=== PATIENT | male | born 1970 | race Caucasian/White ===

== ENCOUNTER → 2016-05-31 | Outpatient (CLI) | payer OTHER ==
--- NOTE | ~2016-05-31 | ESTC ---
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 Risks, complications and alternative treatments were reviewed. Written consent was obtained. Medications Reviewed with Patient prior to Procedure. Procedure Admit Source:Other. Procedure Type: Nuclear Stress Test:Exercise, Cardiolite Stress Test Procedure Start time: 05/31/2016 08:10 Indications: Dyspnea with exertion and Dizziness. Risk Factors The patient risk factors include:former tobacco use, hypercholesterolemia, family history of premature CAD appeared at age 40 and dyslipidemia. Conclusions Summary Cardiolite SPECT images demonstrate homogenous uptake of radioactive tracer. No evidence of inducible reversible defect and no evidence of underlying fixed defect. Normal TID ratio Gated images demonstrate normal left ventricular systolic function without inducible wall motion abnormalities. LVEF is 59% Stress Protocols Resting ECG RSR without ST or T wave changes. Resting HR:72 bpm Resting BP:147/80 mmHg Pre-stress physical exam: Patient assessed by Cuate Sharp APRN prior to testing. Hx of chest pain, palpitations and shortness of breath. Stress Protocol:Exercise Peak HR:173 bpm HR response: Appropriate Peak BP:184/82 mmHg BP response: Appropriate Predicted HR: 176 bpm HR/BP product:48567 % of predicted HR: 98 Max exercise: 12.9 METS Test duration:10:47 min Reason for termination:Target heart rate Exercise effort:Good Perceived exertion:16 ECG Findings RSR to Sinus Tachycardia with ST depression II, III, AVF, V4, V5, V6 Arrhythmias None Symptoms No chest pain, Minimal shortness of breath. Stress Interpretation The electrocardiographic portion of the stress test was positive for ischemia. Blood pressure response was normal, heart rate response was normal for exertion. The Garay Treadmill Score was +5. This corresponds to a low to intermediate risk stress test. Stress supervision and interpretation provided by Judie Sharp APRN . Imaging Results Summed scores - Summed stress score: 3 - Summed rest score: 3 - Summed difference score: 0 Stress ejection Ejection fraction:59 % EDV :105 ml ESV :43 ml Stroke volume :62 ml LV mass :129 gr Imaging Protocols Rest Stress Isotope:Tc99m Sestamibi IV Isotope: Tc99m Sestamibi IV Isotope dose:11.5 mCi Isotope dose:33.8 mCi Date:05/31/2016 07:02 Date:05/31/2016 08:37 Technique: SPECT Technique: Gated Supine SPECT Supine Scan Time:30 minutes post injection Scan Time:45-60 minutes post injection Medical History Admission Data Admission date: 05/31/2016 Admission Time: 06:46 Hospital Status: Outpatient. Signatures dtt: Rip Marcial (cardio) dtd: 05/31/16 0810 Physician Self Edit
== END ==
LOC: GRAD 06:46
DX: R00.2 Palpitations (principal)
CPT/HCPCS: A9500

== ENCOUNTER 2016-08-14 15:49 | Emergency (ER) | payer OTHER ==
--- NOTE | ~2016-08-14 | ER ---
PATIENT'S NAME: KIKA [facility] AGE: 45 Y [address] ROOM: [place] [address] LOCATION: [facility] ADMIT DATE: 08/14/2016 ER/Outpatient Report DISCHARGE DATE: 08/14/2016 FAMILY PHYSICIAN: PHYSICIAN, NO ATTENDING PHYSICIAN: Carolyne Bravo CHIEF COMPLAINT: Finger laceration. TIME OF PATIENT ARRIVAL: 1549. TIME OF PATIENT EVALUATION: 1555. HISTORY OF PRESENT ILLNESS: This 45-year-old male presents to the ER who states he was using his new knife when he accidentally cut the tip of his left index finger. He states that he completely cut off the skin and was having a hard time getting the bleeding under control. He states he is not for sure when his last tetanus shot was and he denies any other problems at this time. ALLERGIES: AMOXICILLIN. MEDICATIONS: 1. Flonase. 2. Zoloft. 3. Z-Will. PAST MEDICAL HISTORY: Anxiety, allergies, history of pneumonia. SOCIAL HISTORY: Denies smoking, drug, or alcohol use. REVIEW OF SYSTEMS: CONSTITUTIONAL: Denies any change in weight or fatigue. MUSCULOSKELETAL: No weakness or myalgias. HEME: No easy bruising or bleeding. SKIN: Has a skin avulsion to the tip of his left index finger. PHYSICAL EXAMINATION: VITAL SIGNS: Blood pressure is 176/92, pulse 65, respirations 16, temperature 98.4 degrees tympanically, saturations 97% on room air. Shorty Coma Score is PATIENT'S NAME: KIKA [facility] AGE: 45 Y [address] ROOM: [place] [address] LOCATION: [facility] ADMIT DATE: 08/14/2016 ER/Outpatient Report DISCHARGE DATE: 08/14/2016 FAMILY PHYSICIAN: PHYSICIAN, NO ATTENDING PHYSICIAN: Carolyne Bravo 15. GENERAL: Alert, calm, well-developed 45-year-old in no acute distress. EXTREMITIES: No clubbing or cyanosis. He does have full range of motion of all limbs. SKIN: He has a centimeter and a half skin avulsion noted to the distal aspect of his left index finger. It is not actively bleeding at this time. LABORATORY DATA AND X-RAYS: None were done. IMPRESSION: 1.5 cm skin avulsion to the distal aspect of his left index finger. ASSESSMENT AND PLAN: It did start to ooze a little bit after we started cleaning it, so we did place a layer of Surgicel over the avulsion site and wrapped with dressing. We did place him in a finger splint for support to protect the tip of his finger and also updated him on his tetanus shot. We will dismiss the patient home with a wound care handout. He may take Tylenol, ibuprofen as needed and follow up with his primary care physician as needed. The patient understands and agrees with care. ANDRAE ESCOBEDO PA-C FOR MD SUNIL LORENZANA/wes /[id number] d: 08/14/16 2136 t: 08/17/16 0642, OUTPATIENT REPORT
== END 2016-08-14 16:21 | disposition disaster alternative care site (69) ==
LOC: GACC 15:49
PROC: 2W3KX1Z Immobilization of Left Finger using Splint (ICD-10-PCS; principal; 2016-08-14)
DX: S61.211A Laceration without foreign body of left index finger without damage to nail, initial encounter (principal); F41.9 Anxiety disorder, unspecified; Z23 Encounter for immunization; Z79.899 Other long term (current) drug therapy; Z88.1 Allergy status to other antibiotic agents; W26.0XXA Contact with knife, initial encounter